=== PATIENT | male | born 2000 | race Caucasian/White ===

== ENCOUNTER 2020-12-11 00:08 | Emergency (ER) | payer OTHER ==
[2020-12-11 01:49] LABS: HEMOGLOBIN 16.9 gm/dl (14.0-17.5); RED BLOOD COUNT 5.53 M/UL (4.20-5.50)
[2020-12-11 02:01] LABS: BUN/CREATININE RATIO 13 (0-10)
[2020-12-11] MEDS ORDERED: US of Gallbladder (04:32)
[2020-12-11] MEDS ORDERED: PEPCID40 MG PO (04:32)
== END 2020-12-11 04:41 | disposition home or self-care (01) ==
LOC: ER1 00:08
PROVIDERS: Family Medicine
DX: R07.9 Chest pain, unspecified (principal); R10.13 Epigastric pain; R10.811 Right upper quadrant abdominal tenderness
CPT/HCPCS: 36415; 71046; 80053; 82550; 82553; 83874; 84484; 85025; 93005; 99285

== ENCOUNTER 2020-12-12 20:35 | Emergency (ER) | payer OTHER ==
[~2020-12-12 20:35] MED LIST: PEPCID40 MG PO; US of Gallbladder
== END 2020-12-12 22:44 | disposition home or self-care (01) ==
LOC: ER1 20:35
DX: R07.89 Other chest pain (principal)
CPT/HCPCS: 71045; 93005; 96372; 99285; J1885